=== PATIENT | male | born 2000 ===

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

== ENCOUNTER → 2018-10-22 | Emergency (ER) | payer OTHER ==
[~2018-10-22] VITALS: Ht 182.9 cm; Wt 66.2 kg
== END | disposition left against medical advice (07) ==
LOC: ER 01:13
DX: Z53.20 Procedure and treatment not carried out because of patient's decision for unspecified reasons (principal)